=== PATIENT | male | born 1985 | race Caucasian/White ===

== ENCOUNTER 2017-02-25 02:28 | Emergency (ER) | payer OTHER ==
[~2017-02-25] VITALS: Ht 190.5 cm; Wt 124.2 kg
[~2017-02-25 02:28] MED LIST: ALPRAZOLAM ER0.5 MG PO; BUDEPRION XL300 MG PO; FLONASE16 G1 BOTH NARES; LEVAQUIN500 MG PO; MUCINEX D ER T1 EACH PO; NOHOMEMEDS; PREDNISONE20 MG PO; TAMIFLU75 MG PO; TESSALON PERLE100 MG PO; VENLAFAXINE HCL75 M3 PO; VENTOLIN HFA18 GM IH
[2017-02-25] MEDS ORDERED: PEN-VEE K,VEET500 MG PO (03:13)
[2017-02-25] MEDS ORDERED: ULTRAM50 MG PO (03:13)
[2017-02-25 03:25] VITALS: BP 133/87
== END 2017-02-25 03:27 | disposition home or self-care (01) ==
LOC: EME 02:28
PROC: 3E0T3BZ Introduction of Anesthetic Agent into Peripheral Nerves and Plexi, Percutaneous Approach (ICD-10-PCS; principal; 2017-02-25)
DX: K08.89 Other specified disorders of teeth and supporting structures (principal)
CPT/HCPCS: 99281; 99283

== ENCOUNTER 2018-02-10 13:14 | Emergency (ER) | payer OTHER ==
[~2018-02-10] VITALS: Ht 190.5 cm; Wt 126.7 kg
[~2018-02-10 13:14] MED LIST changes: +PEN-VEE K,VEET500 MG PO; +ULTRAM50 MG PO
[2018-02-10 13:52] LABS: HEMATOCRIT 42.7 % (38.0-50.0); HEMOGLOBIN 14.6 G/DL (12.5-16.6); MCH 30.9 PG (29.0-34.0); MCHC 34.2 G/DL (30.0-36.0); MCV 90.3 FL (86-99); RBC DIS.WIDTH-CV 12.6 % (11.8-14.6); RBC DIS.WIDTH-SD 41.9 % (39-53); RED BLOOD COUNT 4.73 M/uL (4.00-5.50); WHITE BLOOD COUNT 11.8 K/uL (4.1-10.2)
[2018-02-10 13:57] LABS: APPEARANCE CLEAR ((CLEAR)); BILIRUBIN NEGATIVE; BLOOD NEGATIVE; COLOR YELLOW ((YELLOW)); GLUCOSE (STRIP) NEGATIVE; KETONES NEGATIVE; LEUKOCYTES NEGATIVE; NITRITE NEGATIVE; PROTEIN (STRIP) 30; SPECIFIC GRAVITY 1.028 (1.000-1.030); UCUL ADDED? NO
[2018-02-10 14:03] LABS: CHLORIDE 107 mEq/L (99-109); POTASSIUM 4.2 mEq/L (3.7-5.4); SODIUM 141 mEq/L (136-147)
[2018-02-10 14:05] LABS: GLUCOSE 89 mg/dL (70-99)
[2018-02-10 14:08] LABS: CREATININE 1.1 mg/dL (0.6-1.3); GFR ESTIMATE (CALCULATED) > 59 mL/min/ (58.99-99999)
[2018-02-10 14:09] LABS: UREA NITROGEN (BUN) 15 mg/dL (9-23)
[2018-02-10 14:43] LABS: PLAT.SUFFICIENCY ADEQUATE; PLATELET COUNT 198 K/uL (156-360)
[2018-02-10] MEDS ORDERED: MOTRIN800 MG PO (15:04)
[2018-02-10 15:21] VITALS: BP 128/78
== END 2018-02-10 15:22 | disposition home or self-care (01) ==
LOC: EME 13:14
PROVIDERS: Nurse Practitioner Family
DX: N20.0 Calculus of kidney (principal); D72.829 Elevated white blood cell count, unspecified; R11.0 Nausea; Z87.442 Personal history of urinary calculi; F17.200 Nicotine dependence, unspecified, uncomplicated
CPT/HCPCS: 74176; 80048; 81003; 85027; 99281; 99284; J1885